=== PATIENT | female | born 1990 | race Caucasian/White ===

== ENCOUNTER 2018-11-04 16:50 | Emergency (ER) | payer SELFPAY ==
[~2018-11-04] VITALS: Ht 162.6 cm; Wt 45.0 kg
--- NOTE | 2018-11-04 17:20 | NUR ---
FIRST CONTACT WITH PT. PT HAS FAMILY AT BEDSIDE COMFORTING PT. PT STATES, "YESTERDAY I STARTED HAVING PAIN BY MY BELLY BUTTON, IT FEELS LIKE SOMEONE WAS PULLING MY BELLY BUTTON FROM THE INSIDE. IT RADIATES NOW TO MY LOWER RIGHT SIDE. MY STOOL HAS A GREASY WHITE FILM. I AM DRY HEAVING BUT NOT VOMIT OR DIARRHEA. I HAVE REALLY BAD PERIOD PAINS BUT THIS IS WORSE. MY PERIOD WAS FROM October THROUGH THE ." NADN. PT RESTING IN POSITION GUARDING ABDOMEN ON GURNEY. ALL SAFETY MEASURES IN PLACE. CALL LIGHT WITHIN REACH.
[2018-11-04] MEDS ORDERED: SODIUM CHLORIDE FLUSH 10ML SYR IVF ONE (17:30)
[2018-11-04] MEDS ORDERED: OMNIPAQUE 350 MG/ML, 100ML BOTTLE ONE (17:30)
[2018-11-04] MEDS ORDERED: ONDANSETRON 2MG/ML, 2ML IVPush ONE (17:30)
[2018-11-04 17:50] LABS: BASOPHILS # (AUTO) 0.01 x10^3/uL (0-0.1); BASOPHILS % (AUTO) 0 % (0-1); EOSINOPHILS # (AUTO) 0.17 x10^3/uL (0-0.4); EOSINOPHILS % (AUTO) 2 % (1-7); LYMPHOCYTES # (AUTO) 2.24 x10^3/uL (1-3.4); LYMPHOCYTES % (AUTO) 29 % (22-44); MD NO; MEAN CORPUSCULAR HEMOGLOBIN 31.5 pg (27.0-34.8); MEAN CORPUSCULAR HGB CONC 34.2 g/dL (32.4-35.8); MEAN CORPUSCULAR VOLUME 92.2 fL (80-100); MEAN PLATELET VOLUME 6.9 fL (7.4-10.4); MONOCYTES # (AUTO) 0.33 x10^3/uL (0.2-0.8); MONOCYTES % (AUTO) 4 % (2-9); NEUTROPHILS # (AUTO) 5.06 x10^3/uL (1.8-6.8); NEUTROPHILS % (AUTO) 65 % (42-75); PLATELET COUNT 273 x10^3/uL (130-400); RED BLOOD COUNT 4.43 x10^6/uL (3.82-5.3); RED CELL DISTRIBUTION WIDTH 12.6 % (9.6-15.2)
[2018-11-04] MEDS ORDERED: MORPHINE SULFATE 4 MG/ML, 1ML ONE ×2 (17:51→19:00)
[2018-11-04] MEDS ORDERED: ONDANSETRON 2MG/ML, 2ML ONE (17:51)
[2018-11-04] MEDS: MORPHINE SULFATE 4 MG/ML, 1ML IVPush PRN ×2 (17:55→19:04)
[2018-11-04 17:58] LABS: ALANINE AMINOTRANSFERASE 41 U/L (12-78); ALBUMIN 4.2 g/dL (3.4-5.0); ANION GAP 5 mmol/L (5-15); CALCIUM 8.7 mg/dL (8.5-10.1); CHLORIDE 109 mmol/L (98-107); CREATININE 0.64 mg/dL (0.55-1.02)
[2018-11-04 18:01] LABS: MICROSCOPIC AUTO
[2018-11-04 18:02] LABS: ALKALINE PHOSPHATASE 43 U/L (45-117); BILIRUBIN,TOTAL 0.4 mg/dL (0.2-1.0); TOTAL PROTEIN 7.4 g/dL (6.4-8.2)
--- NOTE | 2018-11-04 18:04 | NUR ---
Provided medication per [facility]. Pt states, prior to medication admin RLQ pain was a 7-8/10. Post medicaiton admin pain is a 4-5/10.
[2018-11-04 18:26] LABS: CULTURE INDICATED? YES
--- NOTE | 2018-11-04 18:55 | NUR ---
Provided bedside report to IGOR Armstrong. All questions answered.
--- NOTE | 2018-11-04 19:31 | NUR ---
Pt taken to US with tech, waiting in room.
[2018-11-04 19:53] VITALS: BP 98/51
== END 2018-11-04 21:15 ==
LOC: ED 19:02
DX: R10.2 Pelvic and perineal pain (principal); R10.31 Right lower quadrant pain; R11.0 Nausea; K21.9 Gastro-esophageal reflux disease without esophagitis
CPT/HCPCS: 36415; 74177; 76830; 80053; 81001; 83690; 84703; 85025; 87086; 96374; 96375; 96376; 99284; J2405; Q9967

== ENCOUNTER 2019-01-05 17:09 | Emergency (ER) | payer SELFPAY ==
[~2019-01-05] VITALS: Ht 160 cm; Wt 44.3 kg
[2019-01-05 17:14] VITALS: BP 99/62
[2019-01-05] MEDS ORDERED: HYDROcodone/APAP 5/325 TABLET ONE (17:51)
[2019-01-05] MEDS ORDERED: ONDANSETRON ODT 4 MG ONE (17:52)
[2019-01-05] MEDS ORDERED: HYDROcodone/APAP 5/325 TABLET PO ONE (18:00)
[2019-01-05] MEDS ORDERED: ONDANSETRON ODT 4 MG PO ONE (18:00)
--- NOTE | 2019-01-05 18:18 | NUR ---
Patient/Caregiver given discharge instructions and they have confirmed that they understand the instructions. Patient ambulatory with steady gait. pt left with all personal belongings.
== END 2019-01-05 18:19 | disposition home or self-care (01) ==
LOC: ED 18:13
DX: S43.51XA Sprain of right acromioclavicular joint, initial encounter (principal); S16.1XXA Strain of muscle, fascia and tendon at neck level, initial encounter; F17.200 Nicotine dependence, unspecified, uncomplicated; V49.59XA Passenger injured in collision with other motor vehicles in traffic accident, initial encounter; Y93.89 Activity, other specified; Y92.89 Other specified places as the place of occurrence of the external cause; Y99.8 Other external cause status
CPT/HCPCS: 72050; 72072; 73030; 99283; Q0162

== ENCOUNTER 2019-12-18 12:01 | Emergency (ER) | payer OTHER ==
[~2019-12-18] VITALS: Ht 160 cm; Wt 54.0 kg
[2019-12-18 12:07] VITALS: BP 104/66
== END 2019-12-18 12:34 | disposition home or self-care (01) ==
LOC: ED 12:21
DX: K08.89 Other specified disorders of teeth and supporting structures (principal); R59.0 Localized enlarged lymph nodes; K21.9 Gastro-esophageal reflux disease without esophagitis; F17.200 Nicotine dependence, unspecified, uncomplicated
CPT/HCPCS: 99283